=== PATIENT | female | born 1990 | race Two or more races ===

== ENCOUNTER 2017-10-15 13:28 | Outpatient (CLI) | payer OTHER ==
[~2017-10-15 13:28] MED LIST: PEPCID AC20 MG PO; PRENATAL + DHA1 EAC1; PROTONIX40 MG PO; ZOFRAN ODT4 MG PO
== END 2017-10-15 13:35 | disposition home or self-care (01) ==
LOC: SONOGRAMA 13:28
DX: Z34.00 Encounter for supervision of normal first pregnancy, unspecified trimester (principal)

== ENCOUNTER 2017-12-11 14:00 | Inpatient (IN) | payer OTHER ==
[~2017-12-11] VITALS: Ht 165.1 cm; Wt 62.1 kg
[2017-12-14] MEDS ORDERED: VALTREX1000 MG PO (21:52)
[2017-12-15] MEDS ORDERED: PROTONIX40 MG PO (13:38)
== END 2018-01-02 11:37 | DRG 775 ==
LOC: OB/GYN 12-29 14:00 → LDR 12-31 06:29 → OB/GYN 12-31 06:29
PROC: 10E0XZZ Delivery of Products of Conception, External Approach (ICD-10-PCS; principal; 2017-12-31)
PROC: 0W8NXZZ Division of Female Perineum, External Approach (ICD-10-PCS; 2017-12-31)
PROC: 4A1HXCZ Monitoring of Products of Conception, Cardiac Rate, External Approach (ICD-10-PCS; 2017-12-31)
PROC: 3E033VJ Introduction of Other Hormone into Peripheral Vein, Percutaneous Approach (ICD-10-PCS; 2017-12-31)
DX: O69.81X0 Labor and delivery complicated by cord around neck, without compression, not applicable or unspecified (principal); Z3A.39 39 weeks gestation of pregnancy; Z37.0 Single live birth

== ENCOUNTER 2017-12-14 21:11 | Outpatient (CLI) | payer OTHER ==
[~2017-12-14] VITALS: Ht 165.1 cm; Wt 60.3 kg
[2017-12-14] MEDS ORDERED: VALTREX1000 MG PO (21:52)
[2017-12-15] MEDS ORDERED: PROTONIX40 MG PO (13:38)
== END 2017-12-15 08:00 | disposition home or self-care (01) ==
LOC: OBS/DEL 21:11 → LDR 21:11 → OBS/DEL 12-15 08:00 → LDR 12-15 14:29 → EDSTATUS 12-26 07:49
DX: O26.893 Other specified pregnancy related conditions, third trimester (principal); R19.7 Diarrhea, unspecified; K29.70 Gastritis, unspecified, without bleeding; Z34.83 Encounter for supervision of other normal pregnancy, third trimester

== ENCOUNTER 2018-04-10 22:30 | Emergency (ER) | payer OTHER ==
[~2018-04-10] VITALS: Ht 165.1 cm; Wt 54.0 kg
[~2018-04-10 22:30] MED LIST changes: +VALTREX1000 MG PO
[2018-04-11] MEDS ORDERED: CEFUROXIME500 MG PO ×2 (00:44→00:45)
[2018-04-11] MEDS ORDERED: KETO10TA2 PO (00:44)
== END 2018-04-11 01:08 | disposition home or self-care (01) ==
LOC: ER 22:30
DX: H66.91 Otitis media, unspecified, right ear (principal)

== ENCOUNTER 2021-01-27 07:27 | Emergency (ER) | payer OTHER ==
[~2021-01-27] VITALS: Ht 165.1 cm; Wt 51.7 kg
[~2021-01-27 07:27] MED LIST changes: +CEFUROXIME500 MG PO; +KETO10TA2 PO
[2021-01-27] MEDS ORDERED: BUTALBIT-ACETA1 EACH PO (12:24)
== END 2021-01-27 12:29 | disposition home or self-care (01) ==
LOC: ER 07:27
DX: G43.919 Migraine, unspecified, intractable, without status migrainosus (principal)